=== PATIENT | male | born 1950 | race Caucasian/White ===

== ENCOUNTER 2018-12-13 20:27 | Emergency (ER) | payer MEDICARE ==
[~2018-12-13] VITALS: Ht 182.9 cm; Wt 104.7 kg
[2018-12-14 02:21] VITALS: BP 129/64
== END 2018-12-14 02:34 | disposition home or self-care (01) ==
LOC: ED 12-14 02:22
DX: R10.33 Periumbilical pain (principal); R11.0 Nausea; E78.5 Hyperlipidemia, unspecified; I25.2 Old myocardial infarction; I10 Essential (primary) hypertension
CPT/HCPCS: 36415; 71045; 76700; 80053; 81001; 83605; 83690; 85025; 93005; 96372; 99284; J1170; J1885; Q0162